=== PATIENT | male | born 1990 | race Caucasian/White ===

== ENCOUNTER 2019-01-07 04:40 | Emergency (ER) | payer OTHER ==
--- NOTE | 2019-01-07 05:08 | ED ---
Complex/Multi-Sys Presentation - HPI Summary HPI Summary: A 28 y/o male presents to [facility] with a chief complaint of diarrhea for the past three days. He describes his diarrhea as loose stool, not watery. He also reports dizziness, lightheadedness and passing gas. He claims that this morning he woke up with tremors and muscle spasms. He denies any fever. At triage he rated his pain as a 0/10 in severity. He denies any PMHx and does not take medication. - History Of Current Complaint Chief Complaint: EDGeneral Time Seen by Provider: 01/07/19 04:55 Hx Obtained From: Patient Onset/Duration: Sudden Onset, Lasting Days, Still Present Timing: Constant, Days Severity Currently: None Severity Initially: Mild Location: Pain At: - diarrhea, muscle spasms, tremors, dizziness, lightheadedness Aggravating Factor(s): nothing Alleviating Factor(s): nothing Associated Signs And Symptoms: Positive: Dizziness, Other - lightheadedness, passing gas, muscle spasms, tremors. Negative: Fever - Allergies/Home Medications Allergies/Adverse Reactions: Allergies Allergy/AdvReac Type Severity Reaction Status Date / Time cefaclor [From Ceclor] Allergy Hives Verified 01/07/19 04:56 cefixime [From Suprax] Allergy Hives Verified 01/07/19 04:56 ceftibuten [From Cedax] Allergy Hives Verified 01/07/19 04:56 Sulfa (Sulfonamide Allergy Itching Verified 01/07/19 04:56 Antibiotics) Home Medications: Home Medications NK [No Home Medications Reported] 01/07/19 [History Confirmed 01/07/19] PMH/Surg Hx/FS Hx/Imm Hx Sensory History: Denies: Hx Deafness EENT History: Denies: Hx Deafness Infectious Disease History: No Infectious Disease History: Denies: Traveled Outside the [place] in Last 30 Days - Family History Known Family History: Negative: Blood Disorder - Social History Alcohol Use: Rare Substance Use Type: Reports: None Smoking Status (MU): Never Smoked Tobacco Review of Systems Negative: Fever Positive: Diarrhea, Other - positive: passing gas Positive: Other - positive: muscle spasms Neurological: Other - positive: dizziness, lightheadedness, tremors All Other Systems Reviewed And Are Negative: Yes Physical Exam - Summary Physical Exam Summary: VITAL SIGNS: Reviewed. GENERAL: Patient is a well-developed and nourished MALE who is lying comfortable in the stretcher. Patient is not in any acute respiratory distress. HEAD AND FACE: No signs of trauma. No ecchymosis, hematomas or skull depressions. No sinus tenderness. EYES: PERRLA, EOMI x 2, No injected conjunctiva, no nystagmus. EARS: Hearing grossly intact. Ear canals and tympanic membranes are within normal limits. MOUTH: Oropharynx within normal limits. NECK: Supple, trachea is midline, no adenopathy, no JVD, no carotid bruit, no c- spine tenderness, neck with full ROM CHEST: Symmetric, no tenderness at palpation LUNGS: Clear to auscultation bilaterally. No wheezing or crackles. CVS: Regular rate and rhythm, S1 and S2 present, no murmurs or gallops appreciated. ABDOMEN: Soft, non-tender. No signs of distention. No rebound no guarding, and no masses palpated. Bowel sounds are normal. EXTREMITIES: FROM in all major joints, no edema, no cyanosis or clubbing. NEURO: Alert and oriented x 3. No acute neurological deficits. Speech is normal and follows commands. SKIN: Dry and warm Triage Information Reviewed: Yes Vital Signs On Initial Exam: Initial Vitals Temp Pulse Resp BP Pulse Ox 98.4 F 100 16 149/89 100 01/07/19 04:45 01/07/19 04:45 01/07/19 04:45 01/07/19 04:45 01/07/19 04:45 Vital Signs Reviewed: Yes Diagnostics - Vital Signs Vital Signs Temp Pulse Resp BP Pulse Ox 01/07/19 04:45 98.4 F 100 16 149/89 100 - Laboratory Result Diagrams: 01/07/19 05:26 01/07/19 05:26 Lab Statement: Any lab studies that have been ordered have been reviewed, and results considered in the medical decision making process. Complex Multi-Symp Course/Dx Course Of Treatment: A 28 y/o male presents to [facility] with a chief complaint of diarrhea for the past three days. He describes his diarrhea as loose stool, not watery. He also reports dizziness, lightheadedness and passing gas. He claims that this morning he woke up with tremors and muscle spasms. The physical exam was unremarkable. In the ED course the patient was given Lomotil PO and Sodium Chloride IV. Bloodwork, chemistries and urines obtained and are WNL. The patient will be discharged and follow up with his PCP. The patient is agreeable with this plan. - Diagnoses Provider Diagnoses: Diarrhea Discharge - Sign-Out/Discharge Documenting (check all that apply): Patient Departure - DC Patient Received Moderate/Deep Sedation with Procedure: No - Discharge Plan Condition: Stable Disposition: HOME Patient Education Materials: Acute Diarrhea (ED) Referrals: Jb Garcias MD [Primary Care Provider] - (2-3 days) Additional Instructions: Use Imodium as needed. PLEASE RETURN TO THE ED IMMEDIATELY FOR WORSENING OR CONCERNING SYMPTOMS. - Billing Disposition and Condition Condition: STABLE Disposition: Home - Attestation Statements Document Initiated by Polina: Yes Documenting Scribe: Gabriele Gonzales Provider For Whom Polina is Documenting (Include Credential): Lisa Campoverde MD Scribe Attestation: Gabriele Velasco scribed for Lisa Campoverde MD on 01/10/19 at 033. Scribe Documentation Reviewed: Yes Provider Attestation: The documentation as recorded by the Gabriele jiménez accurately reflects the service I personally performed and the decisions made by Noé castanon MD Status of Scribe Document: Viewed
[2019-01-07] MEDS ORDERED: NS 0.9% 1000 ML** 1,000 ML IV ONE (05:14)
[2019-01-07] MEDS ORDERED: Diphenoxylat/Atrop 2.5-0.025M* 1 TAB PO ONE (05:15)
[2019-01-07 05:34] LABS: ABS Eosinophils 0.3 10^3/ul (0-0.6); ABS Monocytes 0.5 10^3/ul (0-0.8); ABS Neutrophils 3.4 10^3/ul (1.5-7.7); Eosinophil % 4.9 %; Hematocrit 45 % (42-52); Hemoglobin 15.5 g/dL (14.0-18.0); Lymphocyte % 31.9 %; Mean Corpuscular HGB Conc 35 g/dL (31-36); Mean Corpuscular Hemoglobin 29 pg (27-31); Mean Corpuscular Volume 85 fL (80-94); Mean Platelet Volume 9.3 fL (7.4-10.4); Nucleated Red Blood Cells % 0.1; Platelet Count 184 10^3/uL (150-450); Red Blood Count 5.27 10^6 /uL (4.18-5.48); Red Cell Distribution Width 13 % (10-15); White Blood Count 6.2 10^3/uL (3.5-10.8)
[2019-01-07 05:45] LABS: Urine Appearance Cloudy; Urine Bilirubin Negative (Negative); Urine Blood Negative (Negative); Urine Color Yellow; Urine Glucose Negative (Negative); Urine Ketones Negative (Negative); Urine Nitrite Negative (Negative); Urine Protein Negative (Negative); Urine Specific Gravity 1.023 (1.010-1.030); Urine Urobilinogen Negative (Negative)
[2019-01-07 05:53] LABS: ALT 32 U/L (7-52); AST 19 U/L (13-39); Albumin 4.7 g/dL (3.2-5.2); Alkaline Phosphatase 69 U/L (34-104); Amylase 50 U/L (29-103); Anion Gap 8 mmol/L (2-11); Blood Urea Nitrogen 13 mg/dL (6-24); C Reactive Protein < 1.00 mg/L (<8.01); CO2 Carbon Dioxide 26 mmol/L (22-32); Calcium 9.7 mg/dL (8.6-10.3); Chloride 104 mmol/L (101-111); EGFR African American 106.2 (>60); EGFR Non-African American 87.7 (>60); Globulin 2.4 g/dL (2-4); Glucose 129 mg/dL (70-100); Potassium 3.6 mmol/L (3.5-5.0); Sodium 138 mmol/L (135-145); Total Protein 7.1 g/dL (6.4-8.9)
[2019-01-07 06:06] VITALS: BP 124/76
== END 2019-01-07 06:05 | disposition home or self-care (01) ==
LOC: ED 04:40
DX: R19.7 Diarrhea, unspecified (principal); R42 Dizziness and giddiness; M62.838 Other muscle spasm; R25.1 Tremor, unspecified; Z88.1 Allergy status to other antibiotic agents; Z88.2 Allergy status to sulfonamides
CPT/HCPCS: 36415; 80053; 81003; 82150; 83690; 85025; 86140; 96360; 99282; A9270-GY

== ENCOUNTER 2019-05-22 16:11 | Emergency (ER) | payer OTHER ==
--- OUTSIDE RECORDS SUMMARY | 2019-05-22 16:17 | XMS REPORT | Continuity of Care Document ---
:1990 External Reference #:[id number] Author Name JARRETT Puentes (transmitted by agent of provider Yulia White) Address [address] [place] [address] Care Team Providers Name Role Phone Jb Garcias M.D. Care Team Information [employer] [phone] Problems Active Problems Provider Date Atopic dermatitis Yulia White M.D. Onset: 04/15/2019 Allergic rhinitis Yulia White M.D. Onset: 04/15/2019 Mild intermittent asthma Yulia White M.D. Onset: 04/15/2019 Social History Type Date Description Comments Sex Unknown Tobacco Use Start: Unknown Never Smoked Cigarettes Tobacco Use Start: Unknown Never Smoked Cigars Tobacco Use Start: Unknown Never Smoked A Pipe Tobacco Use Start: Unknown Never Used Smokeless Tobacco ETOH Use Rarely consumes alcohol Recreational Drug Use Never Used Drugs Tobacco Use Start: Unknown Patient has never smoked Allergies, Adverse Reactions, Alerts Active Allergies Reaction Severity Comments Date Suprax hives, rash 04/15/2019 Cedax hives, rash 04/15/2019 Ceclor hives, rash 04/15/2019 Sulfa Antibiotics hives, rash 04/15/2019 Medications Active Medications SIG Qnty Indications Ordering Provider Date Levalbuterol Tartrate 2 puffs inhalation 15gm J45.20 [facility] 04/15/2019 q6 hours as needed Gerhard White 45mcg/Act Aerosol Mometasone Furoate 2 sprays in each 17gm J30.9 [facility] 04/15/2019 nostril daily Gerhard White 50mcg/Act Suspension Immunizations Description No Information Available Vital Signs Date Vital Result Comment 04/29/2019 3:12pm Height 70 inches 5'10" Weight 168.00 lb Weight 76.205 kg Respiratory Rate 18 /min Heart Rate 82 /min O2 % BldC Oximetry 98 % BP Systolic 122 mmHg BP Diastolic 78 mmHg Asthma Control Test 23 Fractional Exhaled Nitric Oxide 21 BMI (Body Mass Index) 24.1 kg/m2 04/15/2019 2:08pm Height 70 inches 5'10" Weight 166.00 lb Weight 75.298 kg Respiratory Rate 22 /min Heart Rate 90 /min O2 % BldC Oximetry 99 % BP Systolic 128 mmHg BP Diastolic 85 mmHg Fractional Exhaled Nitric Oxide 17 BMI (Body Mass Index) 23.8 kg/m2 Results Test Date Facility Test Result H/L Range Note CBC Auto 04/23/2019 [facility] White Blood 5.9 10^3/uL Normal 3.5-10.[address] [place] [address] [phone] Red Blood Count 5.21 10^6/uL Normal 4.18-5.48 Hemoglobin 15.4 g/dL Normal 14.0-18.0 Hematocrit 44 % Normal 42-52 Mean Corpuscular Volume 85 fL Normal 80-94 Mean Corpuscular Hemoglobin 30 pg Normal 27-31 Mean Corpuscular HGB Conc 35 g/dL Normal 31-36 Red Cell Distribution Width 13 % Normal 10-15 Platelet Count 223 10^3/uL Normal 150-450 Mean Platelet Volume 8.9 fL Normal 7.4-10.4 Abs Neutrophils 3.0 10^3/uL Normal 1.5-7.7 Abs Lymphocytes 2.1 10^3/uL Normal 1.0-4.8 Abs Monocytes 0.5 10^3/uL Normal 0-0.8 Abs Eosinophils 0.4 10^3/uL Normal 0-0.6 Abs Basophils 0.0 10^3/uL Normal 0-0.2 Abs Nucleated RBC 0.0 10^3/uL Granulocyte % 50.3 % Lymphocyte % 34.8 % Monocyte % 8.3 % Eosinophil % 6.1 % Basophil % 0.5 % Nucleated Red Blood Cells % 0.0 Immunoglobulins 04/23/2019 [facility] Immunoglobulin G 934 mg/ dL 767 - 1 Serum Quant [address] [place] [address] [phone] Immunoglobulin M 98 mg/dL 37 - 286 Immunoglobulin A 116 mg/dL 61 - 356 Laboratory test 04/23/2019 [facility] Immunoglobulin E 10.8 kU/ L <= 214 2 finding [address] [facility] ([facility] [place] [address] [phone] Tetanus Toxoid 04/23/2019 [facility] Tetanus Toxoid IgG Positive 3 Igg Antibody,S [address] [place] [address] [phone] Tetanus Toxoid IgG Value 0.99 IU/mL 4 Diptheria Igg 04/23/2019 [facility] Diphtheria IgG Positive [address] [place] [address] [phone] Diphtheria IgG Value 0.61 IU/mL 6 Laboratory test 04/23/2019 [facility] Hemophilus >=9.00 mg/L >=0.15 [address] [place] [address] [place] [address] [phone] 1 Test Performed by: [facility] [place] [address] Property Maintenance Supervisor: Elver Mccain M.D. Ph.D.; CLIA# [id number] 2 Test Performed by: [facility] [place] [address] Property Maintenance Supervisor: Elver Mccain M.D. Ph.D.; CLIA# [id number] 3 REFERENCE VALUE Vaccinated: Positive (>= 0.01 IU/mL) Unvaccinated: Negative (< 0.01 IU/mL) 4 ADDITIONAL INFORMATION This test was developed and its performance characteristics determined by [facility] in a manner consistent with CLIA requirements. This test has not been cleared or approved by the U.S. Food and Drug Administration. Test Performed by: [facility] [place] [address] Property Maintenance Supervisor: Elver Mccain M.D. Ph.D.; CLIA# [id number] 5 REFERENCE VALUE Vaccinated: Positive (>= 0.01 IU/mL) Unvaccinated: Negative (< 0.01 IU/mL) 6 ADDITIONAL INFORMATION This test was developed and its performance characteristics determined by [facility] in a manner consistent with CLIA requirements. This test has not been cleared or approved by the U.S. Food and Drug Administration. Test Performed by: [place] [address] Property Maintenance Supervisor: Elver Mccain M.D. Ph.D.; CLIA# [id number] 7 ADDITIONAL INFORMATION The minimum level of protective antibody in the normal population is 0.15 mg/L. However, the optimum antibody level to confer terminal manager immunity is >= 1.0 mg/L post vaccination. Test Performed by: [place] [address] Property Maintenance Supervisor: Elver Mccain M.D. Ph.D.; CLIA# [id number] Procedures Date Code Description Status 04/29/2019 74810 Nitric Oxide Gas Determination Completed 04/15/2019 77158 Nitric Oxide Gas Determination Completed 04/15/2019 53014 Skin Test Scratch # Of Units ____ Completed 04/15/2019 99258 Pulmonary Function Test Completed Medical Devices Description No Information Available Encounters Type Date Location Provider Dx Diagnosis Office Visit 04/29/2019 Raine White, 3:40p M.D. Office Visit 04/15/2019 Raine White, J45.20 Mild intermittent 2:00p M.D. asthma, uncomplicated J30.9 Allergic rhinitis, unspecified L20.9 Atopic dermatitis, unspecified Z23 Encounter for immunization Assessments Date Code Description Provider 04/29/2019 J45.20 Mild intermittent asthma, uncomplicated Caroline Uldrich, [facility] 04/29/2019 J30.9 Allergic rhinitis, unspecified Caroline Uldrich, [facility] 04/29/2019 L20.9 Atopic dermatitis, unspecified Caroline Uldrich, [facility] 04/15/2019 J45.20 Mild intermittent asthma, uncomplicated Yulia White M.D. 04/15/2019 J30.9 Allergic rhinitis, unspecified Yulia White M.D. 04/15/2019 L20.9 Atopic dermatitis, unspecified Yulia White M.D. 04/15/2019 Z23 Encounter for immunization Yulia White M.D. Plan of Treatment Future Appointment(s):07/06/2019 11:00 am - Yulia White M.D. at [place] Functional Status Description No Information Available Mental Status Description No Information Available Referrals Description No Information Available
--- OUTSIDE RECORDS SUMMARY | 2019-05-22 16:17 | XMS REPORT | Continuity of Care Document ---
:1990 External Reference #:[id number] Author Name Jb Garcias M.D. (transmitted by agent of provider Sanna Nichols) Address [address], [place] [address] Care Team Providers Name Role Phone Jb Garcias III, MD - Internal Care Team Information [employer] [phone] Medicine Dakota Pacheco MD - Otolaryngology Care Team Information [employer] Sanjuanita Perkins MD - Allergy & Care Team Information [employer] Immunology Problems Description No Information Available Social History Type Date Description Comments Sex Unknown ETOH Use Occasionally consumes alcohol Tobacco Use Start: Unknown Patient has never smoked Smoking Status Reviewed: 03/29/19 Patient has never smoked Exercise Type/Frequency Exercises regularly walks, bikes Allergies, Adverse Reactions, Alerts Active Allergies Reaction Severity Comments Date Sulfa, Ceclor, Cedax, Suprax hives/rash 11/09/2018 Medications Active Medications SIG Qnty Indications Ordering Provider Date No Active Medications Unknown 03/29/2019 History Medications Proair HFA 2 puffs by 1units R06.00 Jb Patino 01/18/2019 - 108(90Base) mouth akil Garcias M.D. 03/29/2019 mcg/Act Aerosol times a day as needed No Active Medications Unknown 11/09/2018 - 01/18/2019 Immunizations CPT Code Status Date Vaccine Lot # [id number] Given 08/03/2015 Tdap - Tetanus/Diptheria/Acellular Pertussis Vital Signs Date Vital Result Comment 03/29/2019 1:56pm Height 69 inches 5'9" Weight 164.00 lb Heart Rate 108 /min BP Systolic Sitting 143 mmHg BP Diastolic Sitting 91 mmHg Body Temperature 98.7 F O2 % BldC Oximetry 99 % BMI (Body Mass Index) 24.2 kg/m2 01/18/2019 5:17pm Height 69 inches 5'9" Weight 158.38 lb Heart Rate 82 /min BP Systolic 129 mmHg BP Diastolic 85 mmHg Body Temperature 96.4 F O2 % BldC Oximetry 99 % BMI (Body Mass Index) 23.4 kg/m2 Results Test Date Facility Test Result H/L Range Note HIV 4TH [facility] HIV 4th Negative Negative Generation [address] [place] [address] [phone] CBC Auto Diff [facility] White Blood 6.2 10^3/uL Normal 3.5-10.[address] [place] [address] [phone] Red Blood Count 5.27 10^6/uL Normal 4.18-5.48 Hemoglobin 15.5 g/dL Normal 14.0-18.0 Hematocrit 45 % Normal 42-52 Mean Corpuscular Volume 85 fL Normal 80-94 Mean Corpuscular Hemoglobin 29 pg Normal 27-31 Mean Corpuscular HGB Conc 35 g/dL Normal 31-36 Red Cell Distribution Width 13 % Normal 10-15 Platelet Count 184 10^3/uL Normal 150-450 Mean Platelet Volume 9.3 fL Normal 7.4-10.4 Abs Neutrophils 3.4 10^3/uL Normal 1.5-7.7 Abs Lymphocytes 2.0 10^3/uL Normal 1.0-4.8 Abs Monocytes 0.5 10^3/uL Normal 0-0.8 Abs Eosinophils 0.3 10^3/uL Normal 0-0.6 Abs Basophils 0.0 10^3/uL Normal 0-0.2 Abs Nucleated RBC 0.0 10^3/uL Granulocyte % 55.3 % Lymphocyte % 31.9 % Monocyte % 7.6 % Eosinophil % 4.9 % Basophil % 0.3 % Nucleated Red Blood Cells % 0.1 Urinalysis Profile 01/07/2019 [facility] Urine Color Yellow [address] [place] [address] [phone] Urine Appearance Cloudy Urine Specific Plaza 1.023 Normal 1.010-1.030 Urine pH 5.0 Normal 5-9 Urine Urobilinogen Negative Negative Urine Ketones Negative Negative Urine Protein Negative Negative Urine Leukocytes Negative Negative Urine Blood Negative Negative * * Abnormal Negative 1 Urine Nitrite Negative Negative Urine Bilirubin Negative Negative Urine Glucose Negative Negative Comp Metabolic 01/07/2019 [facility] Sodium 138 mmol/L Normal 135-145 Panel [address] [place] [address] [phone] Potassium 3.6 mmol/L Normal 3.5-5.0 Chloride 104 mmol/L Normal 101-111 Co2 Carbon Dioxide 26 mmol/L Normal 22-32 Anion Gap 8 mmol/L Normal 2-11 Glucose 129 mg/dL High 70-100 Blood Urea Nitrogen 13 mg/dL Normal 6-24 Creatinine 1.00 mg/dL Normal 0.67-1.17 BUN/Creatinine Ratio 13.0 Normal 8-20 Calcium 9.7 mg/dL Normal 8.6-10.3 Total Protein 7.1 g/dL Normal 6.4-8.9 Albumin 4.7 g/dL Normal 3.2-5.2 Globulin 2.4 g/dL Normal 2-4 Albumin/Globulin Ratio 2.0 Normal 1-3 Total Bilirubin 0.40 mg/dL Normal 0.2-1.0 Alkaline Phosphatase 69 U/L Normal 34-104 Alt 32 U/L Normal 7-52 Ast 19 U/L Normal 13-39 Egfr Non- 87.7 >60 Egfr 106.2 >60 2 Laboratory test 01/07/2019 [facility] Amylase 50 U/L Normal 29 -103 finding [address] [place] [address] [phone] Lipase 16 U/L Normal 11.0-82.0 C Reactive Protein < 1.00 mg/L Normal <8.01 Lipid Profile 11/20/2018 [facility] Triglycerides 166 mg/dL 3 (Trig/Chol/HDL) [address] [place] [address] [phone] Cholesterol 173 mg/dL 4 HDL Cholesterol 42.8 mg/dL 5 LDL Cholesterol 97 mg/dL 6 Basic Metabolic 11/20/2018 [facility] Sodium 141 mmol/L Normal 135-145 Panel [address] [place] [address] [phone] Potassium 4.5 mmol/L Normal 3.5-5.0 Chloride 103 mmol/L Normal 101-111 Co2 Carbon Dioxide 29 mmol/L Normal 22-32 Anion Gap 9 mmol/L Normal 2-11 Glucose 84 mg/dL Normal 70-100 Blood Urea Nitrogen 13 mg/dL Normal 6-24 Creatinine 0.94 mg/dL Normal 0.67-1.17 BUN/Creatinine Ratio 13.8 Normal 8-20 Calcium 9.8 mg/dL Normal 8.6-10.3 Egfr Non- 94.2 >60 Egfr 114.0 >60 7 Lead 11/20/2018 [facility] Lead,Venous, B 1.7 g/dL 0.0-4.[address] [place] [address] [phone] Venous/Capillary Venous Submitting Laboratory Phone [phone] 1 *Ascorbic acid is present which may interfere with detection of blood. 2 Because ethnic data is not always readily available, this report includes an eGFR for both -Americans and non- Americans. The National Kidney Disease Education Program (NKDEP) does not endorse the use of the MDRD equation for patients that are not between the ages of 18 and 70, are , have extremes of body size, muscle mass, or nutritional status, or are non- or non-. According to the National Kidney Foundation, irrespective of diagnosis, the stage of the disease is based on the level of kidney function: Stage Description GFR(mL/min/1.73 m(2)) 1 Kidney damage with normal or decreased GFR 90 2 Kidney damage with mild decrease in GFR 60-89 3 Moderate decrease in GFR 30-59 4 Severe decrease in GFR 15-29 5 Kidney failure <15 (or dialysis) 3 Desirable: <150 Borderline High: 150-199 High: 200-499 Very High: >500 4 Desirable: <200 Borderline High: 200-239 High: >239 5 Low: <40 Desirable: 40-60 High: >60 6 Desirable: <100 Near Optimal: 100-129 Borderline High: 130-159 High: 160-189 Very High: >189 7 Because ethnic data is not always readily available, this report includes an eGFR for both -Americans and non- Americans. The National Kidney Disease Education Program (NKDEP) does not endorse the use of the MDRD equation for patients that are not between the ages of 18 and 70, are , have extremes of body size, muscle mass, or nutritional status, or are non- or non-. According to the National Kidney Foundation, irrespective of diagnosis, the stage of the disease is based on the level of kidney function: Stage Description GFR(mL/min/1.73 m(2)) 1 Kidney damage with normal or decreased GFR 90 2 Kidney damage with mild decrease in GFR 60-89 3 Moderate decrease in GFR 30-59 4 Severe decrease in GFR 15-29 5 Kidney failure <15 (or dialysis) 8 ADDITIONAL INFORMATION Testing performed by Inductively Coupled Plasma-Mass Spectrometry (ICP-MS). This test was developed and its performance characteristics determined by [facility] in a manner consistent with CLIA requirements. This test has not been cleared or approved by the U.S. Food and Drug Administration. 9 Test Performed by: [facility] - [address] [address] Procedures Description No Information Available Medical Devices Description No Information Available Encounters Type Date Location Provider Dx Diagnosis Office Visit 01/10/2019 [facility] Internal Maddie Chou, A08.39 Other viral 1:40p Medicine - Deepak Hennessy enteritis Z11.4 Encounter for screening for human immunodeficiency virus Office Visit 11/09/2018 2:20p [facility] Internal Jb Patino R07.0 Pain in throat Medicine - Deepak Garcias M.D. 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 01/18/2019 R06.00 Dyspnea, unspecified Jb Garcias M.D. 01/10/2019 A08.39 Other viral enteritis Maddie Chou M.D. 01/10/2019 Z11.4 Encounter for screening for human Maddie Chou M.D. immunodeficiency virus [Hi 11/09/2018 R07.0 Pain in throat Jb Garcias M.D. 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 11/09/2018 Z13.220 Encounter for screening for lipoid Jb Garcias M.D. disorders 11/09/2018 Z13.1 Encounter for screening for diabetes Jb Garcias M.D. mellitus 11/09/2018 Z57.5 Occupational exposure to toxic agents in Jb Garcias M.D. other industries 11/09/2018 R09.89 Oth symptoms and signs involving the circ Jb Garcias M.D. and resp systems Plan of Treatment No Information Available Functional Status Description No Information Available Mental Status Description No Information Available Referrals Refer to Reason for Referral Status Appt Date Sanjuanita Perkins MD episodic ? asthma sx with exercise, some Sent 2018 environmental exposures [address] [place] [address] [phone] Dakota Pacheco MD chronic throat discomfort/phlegm Patient Declined 00/ 0000 sensation resent 01/11/[address] [place], [place] [id number] [phone]
--- NOTE | 2019-05-22 16:19 | UC ---
Cardiac HPI - HPI Summary HPI Summary: Pt came in today w/ one day of left lateral eye pain, sinus pain, some lightheadedness. He feels like he is getting sick and is concerned b/c he started getting R mid chest pain that comes and goes. Denies vision changes. Denies cough. Denies diaphoresis, denies SOB. Denies dizziness. - History of Current Complaint Chief Complaint: UCChestPain Stated Complaint: HEAD,CHEST PAIN Time Seen by Provider: 05/22/19 16:15 Hx Obtained From: Patient - Allergy/Home Medications Allergies/Adverse Reactions: Allergies Allergy/AdvReac Type Severity Reaction Status Date / Time cefaclor [From Ceclor] Allergy Hives Verified 05/22/19 16:25 cefixime [From Suprax] Allergy Hives Verified 05/22/19 16:25 ceftibuten [From Cedax] Allergy Hives Verified 05/22/19 16:25 Sulfa (Sulfonamide Allergy Itching Verified 05/22/19 16:25 Antibiotics) Home Medications: Home Medications Levalbuterol HFA INHALER* [Xopenex Hfa Inhaler*] 1 puff INH BID 05/22/19 [ History Confirmed 05/22/19] PMH/Surg Hx/FS Hx/Imm Hx - Additional Past Medical History Additional PMH: no chronic conditions. Previously Healthy: Yes - Surgical History Surgical History: Unable to Obtain/Confirm - Family History Known Family History: Negative: Blood Disorder - Social History Alcohol Use: Rare Substance Use Type: None Smoking Status (MU): Never Smoked Tobacco Review of Systems All Other Systems Reviewed And Are Negative: Yes Constitutional: Negative: Fever, Chills, Fatigue Skin: Negative: Rash Eyes: Positive: Other - L SIDE OF HIS EYE IS BURNING INTERMITTENTLY Respiratory: Positive: Cough. Negative: Shortness Of Breath Cardiovascular: Positive: Chest Pain Neurological: Positive: Headache - L temporal, Other - +shaking hands Physical Exam Triage Information Reviewed: Yes Appearance: Well-Appearing Vital Signs Reviewed: Yes Eyes: Positive: Conjunctiva Clear ENT: Negative: Other - nontender temporal areas bilat. Neck: Positive: Supple Respiratory Exam: Normal Cardiovascular: Positive: Other: - NO reproducible chest pain and his sharp R upper pains resolved during visit. Neurological: Positive: Other: - shaking of both hands have stopped by the end of visit. PERRLA Psychological: Positive: Other: - flat affect, +anxious Skin: Positive: Rashes - ON exam I noticed urticaria on chest, back and upper forehead. No open areas. - Assessment/Plan Course Of Treatment: A sudden constellation of symptoms that resulted in URI findings. Had pleuritic chest pain and during visit started to develop hives. He was clearly anxious and had a flat affect. There could be an element of anxiety to this. I was able to recheck vitals and heart rate was decr. I do not think there was anaphylaxis and he had no active acute respiratory distress or stridor. we disc his URI and that at times when someone is anxious they can develop hives. I also advised him to disc anxiety w/ his pcp - Differential Diagnoses - Chest Pain Differential Diagnosis/HQI/PQRI: Chest Wall, Other: - Differential Diagnoses - Hypertension Differential Diagnosis/HQI PQRI: Other - Clinical Impression Provider Diagnosis: Urticaria, URI (upper respiratory infection) Discharge ED - Sign-Out/Discharge Documenting (check all that apply): Patient Departure All imaging exams completed and their final reports reviewed: No Studies - Discharge Plan Condition: Good Disposition: HOME Patient Education Materials: Urticaria (ED) Referrals: Jb Garcias MD [Primary Care Provider] - Additional Instructions: Should you have worsening shortness of breath or chest pain please go to the emergency room I suspect some of your symptoms may have an anxious element to them but unclear. Please follow up with your pcp to discuss and work up your other symptoms. - Billing Disposition and Condition Condition: GOOD Disposition: Home
[2019-05-22 17:14] VITALS: BP 149/88
== END 2019-05-22 17:00 | disposition home or self-care (01) ==
LOC: UCEAST 16:11
DX: R07.89 Other chest pain (principal); R51 Headache; F32.9 Major depressive disorder, single episode, unspecified; F41.9 Anxiety disorder, unspecified; Z88.1 Allergy status to other antibiotic agents; Z88.2 Allergy status to sulfonamides; H57.89 Other specified disorders of eye and adnexa; R25.1 Tremor, unspecified; R05 Cough; L50.9 Urticaria, unspecified
CPT/HCPCS: 99211; G0463

== ENCOUNTER 2019-09-23 12:03 | Emergency (ER) | payer OTHER ==
[2019-09-23 12:14] VITALS: BP 134/89
[2019-09-23 12:43] LABS: Influenza A Molecular Negative (Negative); Influenza B Molecular Negative (Negative)
--- NOTE | 2019-09-23 13:15 | UC ---
Respiratory Complaint HPI - HPI Summary HPI Summary: The patient is a 29-year-old male who has been ill for 5-7 days. Initially he felt like he was having some chest tightness and wheezing. He used his inhaler. He has had some chills. He has also had muscle and joint aches. He denies any nausea vomiting or diarrhea. The past day or 2 he has had weakness and dizziness. He denies any chest pain or shortness of breath. He has no UTI symptoms. He has no abdominal pain. - History of Current Complaint Chief Complaint: UCGeneralIllness Stated Complaint: CHEST CONGESTION Time Seen by Provider: 09/23/19 12:12 Hx Obtained From: Patient Onset/Duration: Gradual Onset, Lasting Days Timing: Constant Severity Initially: Mild Severity Currently: Moderate Pain Intensity: 0 Pain Scale Used: 0-10 Numeric Aggravating Factors: Nothing Alleviating Factors: Nothing Associated Signs And Symptoms: Positive: Chills, Dizziness, Nasal Congestion, Sinus Discomfort - Allergies/Home Medications Allergies/Adverse Reactions: Allergies Allergy/AdvReac Type Severity Reaction Status Date / Time cefaclor [From Ceclor] Allergy Hives Verified 09/23/19 12:14 cefixime [From Suprax] Allergy Hives Verified 09/23/19 12:14 ceftibuten [From Cedax] Allergy Hives Verified 09/23/19 12:14 Sulfa (Sulfonamide Allergy Itching Verified 09/23/19 12:14 Antibiotics) Home Medications: Home Medications Levalbuterol HFA INHALER* [Xopenex Hfa Inhaler*] 1 puff INH BID 05/22/19 [ History Confirmed 09/23/19] busPIRone TAB* [Buspar TAB*] 7.5 mg PO DAILY 09/23/19 [History Confirmed ] PMH/Surg Hx/FS Hx/Imm Hx Previously Healthy: Yes Respiratory History: Asthma - Surgical History Surgical History: Yes Surgery Procedure, Year, and Place: appy - Family History Known Family History: Positive: Hypertension, Non-Contributory Negative: Blood Disorder - Social History Alcohol Use: Rare Substance Use Type: None Smoking Status (MU): Never Smoked Tobacco Review of Systems All Other Systems Reviewed And Are Negative: Yes Constitutional: Positive: Chills, Fatigue Skin: Positive: Negative Eyes: Positive: Negative ENT: Positive: Nasal Discharge, Sinus Congestion, Sinus Pain/Tenderness Respiratory: Positive: Negative Cardiovascular: Positive: Negative Gastrointestinal: Positive: Negative Genitourinary: Positive: Negative Motor: Positive: Negative Neurovascular: Positive: Negative Musculoskeletal: Positive: Negative Neurological/Mental Status: Positive: Negative Psychological: Positive: Negative Physical Exam Triage Information Reviewed: Yes Appearance: Well-Appearing, No Pain Distress, Well-Nourished Vital Signs: Initial Vital Signs Temp 98 F 09/23/19 12:11 Pulse 99 09/23/19 12:11 Resp 17 09/23/19 12:11 BP 134/89 09/23/19 12:11 Pulse Ox 100 09/23/19 12:11 Vital Signs Reviewed: Yes Eyes: Positive: Conjunctiva Clear ENT: Positive: Hearing grossly normal, Nasal congestion, Uvula midline. Negative: Nasal drainage, TMs normal, Tonsillar swelling, Tonsillar exudate, Trismus, Muffled voice, Hoarse voice Neck: Positive: Supple, Nontender, No Lymphadenopathy Respiratory: Positive: Chest non-tender, Lungs clear, Normal breath sounds, No respiratory distress, No accessory muscle use Cardiovascular: Positive: RRR, No Murmur Abdomen Description: Positive: Nontender, No Organomegaly. Negative: CVA Tenderness (R), CVA Tenderness (L) Bowel Sounds: Positive: Present Musculoskeletal: Positive: ROM Intact, No Edema Neurological: Positive: Alert Psychological Exam: Normal Skin Exam: Normal Respiratory Course/Dx - Differential Dx/Diagnosis Provider Diagnosis: Viral URI Discharge ED - Sign-Out/Discharge Documenting (check all that apply): Patient Departure All imaging exams completed and their final reports reviewed: No Studies - Discharge Plan Condition: Stable Disposition: HOME Patient Education Materials: Viral Syndrome (ED) Forms: *Work Release Referrals: Jb Garcias MD [Primary Care Provider] - 3 Days (if not better) Additional Instructions: rest fluids recheck for new or worsening symptoms - Billing Disposition and Condition Condition: STABLE Disposition: Home
[2019-09-23 16:02] LABS: ABS Eosinophils 0.1 10^3/ul (0-0.6); ABS Lymphocytes 1.4 10^3/ul (1.0-4.8); ABS Monocytes 0.4 10^3/ul (0-0.8); ABS Neutrophils 3.7 10^3/ul (1.5-7.7); Eosinophil % 2.3 %; Hematocrit 44 % (42-52); Hemoglobin 15.4 g/dL (14.0-18.0); Lymphocyte % 25.4 %; Mean Corpuscular HGB Conc 35 g/dL (31-36); Mean Corpuscular Hemoglobin 30 pg (27-31); Mean Corpuscular Volume 85 fL (80-94); Mean Platelet Volume 9.4 fL (7.4-10.4); Nucleated Red Blood Cells % 0.1; Platelet Count 223 10^3/uL (150-450); Red Blood Count 5.18 10^6 /uL (4.18-5.48); Red Cell Distribution Width 13 % (10-15); White Blood Count 5.7 10^3/uL (3.5-10.8)
[2019-09-23 16:15] LABS: Albumin 5.5 g/dL (3.2-5.2); Calcium 10.4 mg/dL (8.6-10.3); Total Bilirubin 0.4 mg/dL (0.2-1.0)
[2019-09-23 16:21] LABS: Albumin/Globulin Ratio 2.4 (1-3); BUN/Creatinine Ratio 13.5 (8-20); EGFR African American 110.5 (>60); EGFR Non-African American 91.4 (>60); Globulin 2.3 g/dL (2-4); Total Protein 7.8 g/dL (6.4-8.9)
== END 2019-09-23 13:20 | disposition home or self-care (01) ==
LOC: UCEAST 12:03
DX: J06.9 Acute upper respiratory infection, unspecified (principal); J45.909 Unspecified asthma, uncomplicated; Z88.1 Allergy status to other antibiotic agents; Z88.2 Allergy status to sulfonamides; Z79.899 Other long term (current) drug therapy
CPT/HCPCS: 36415; 80053; 85025; 99212; G0463